=== PATIENT | female | born 1975 | race Caucasian/White ===

== ENCOUNTER 2022-04-13 17:53 | Emergency (ER) | payer MEDICAID ==
[~2022-04-13] VITALS: Ht 170.2 cm; Wt 54.4 kg
[2022-04-13 18:00] VITALS: BP_SYST 99
[2022-04-13 18:43] LABS: BASOPHILS % (AUTO) 0.6 % (0.0-2.0); EOSINOPHILS # (AUTO) 0.1 K/uL (0.0-0.4); EOSINOPHILS % (AUTO) 1.7 % (0.0-4.0); HEMATOCRIT 25.5 % (36-48); HEMOGLOBIN 7.8 g/dL (12.0-16.0); LYMPHOCYTES % (AUTO) 17.6 % (20.5-51.5); MEAN CORPUSCULAR HEMOGLOBIN 21 pg (27-31); MEAN CORPUSCULAR HGB CONC 31 % (32-36); MEAN CORPUSCULAR VOLUME 67 fL (79.0-98.0); MONOCYTES # (AUTO) 0.4 K/uL (0.0-1.0); MONOCYTES % (AUTO) 6.6 % (1.7-9.3); NEUTROPHILS # (AUTO) 4.2 K/uL (1.8-7.7); NEUTROPHILS % (AUTO) 73.5 % (40.0-70.0); PLATELET COUNT (AUTO) 402 K/uL (130-430); WHITE BLOOD COUNT (AUTO) 5.7 K/uL (4.8-10.8)
--- NOTE | 2022-04-13 18:50 | NUR ---
Patient to ER bed h1 to gown for evaluation. Side rails up.
--- NOTE | 2022-04-13 19:00 | NUR ---
ER at bedside examining patient.
[2022-04-13 19:01] LABS: CALCIUM 7.6 mg/dL (8.4-11.0); CREATININE 0.69 mg/dL (0.55-1.30); POTASSIUM 3.7 mmol/L (3.5-5.1)
--- NOTE | 2022-04-13 19:05 | NUR ---
Pt bib LACF from home s/p syncope episode in restroom.Pt has no acute distress noted.
[2022-04-13 19:07] LABS: TOTAL BILIRUBIN 0.1 mg/dL (0.0-1.0)
--- NOTE | 2022-04-13 19:25 | NUR ---
Pt endorsed to Zulma MENJIVAR
--- NOTE | 2022-04-13 19:25 | NUR ---
PT is A&O x 4, following commands, and talking in full sentences. Pt actively using phone. Safety precautions in place.
[2022-04-13] MEDS ORDERED: NACL 0.9% 1,000 ML IV ONE (21:00)
[2022-04-13] MEDS ORDERED: FERR250T2 PO (21:44)
--- NOTE | 2022-04-13 21:49 | NUR ---
Pt has stated that she does not want a blood transfusion.
[2022-04-13 21:52] VITALS: BP_SYST 125
--- NOTE | 2022-04-13 21:52 | NUR ---
Patient given written and verbal discharge instructions and verbalizes understanding. ER Dr. Amador discussed with patient the results and treatment provided. Patient in stable condition. ID arm band removed. IV catheter removed intact and dressing applied, no active bleeding. Rx of ferrous sulfate given. Patient educated on pain management and to follow up with PMD. Pain Scale 0. Opportunity for questions provided and answered. Medication side effect fact sheet provided.
== END 2022-04-13 21:52 | disposition home or self-care (01) ==
LOC: SED 17:53
DX: D64.9 Anemia, unspecified (principal); R57.8 Other shock; N92.0 Excessive and frequent menstruation with regular cycle; N93.8 Other specified abnormal uterine and vaginal bleeding
CPT/HCPCS: 36415; 76856; 80053; 85025; 86886; 86900; 86901; 96360; 99284; J7030; 86920